=== PATIENT | male | born 1995 | race Caucasian/White ===

== ENCOUNTER → 2018-04-12 | Outpatient (CLI) | payer OTHER ==
--- NOTE | 2018-04-12 09:06 | CT ---
EXAMINATION TYPE: CT cervical spine wo con DATE OF EXAM: 04/12/2018 COMPARISON: NONE HISTORY: Fracture C7-T1 spinous process, cervicalgia, myalgia, and cervical spine ligament sprain all per order. Chronic neck pain for 6 to 8 years with history of fracture causing pain or numbness into right arm per patient after injury. CT DLP: 665 mGycm. Automated Exposure Control for Dose Reduction was Utilized. TECHNIQUE: CT scan of the cervical spine is obtained without contrast, axial images are obtained, sa gittal and coronal reformatted images are also reviewed. FINDINGS: Cervical spine is visualized in its entirety from C1 through upper thoracic levels, demonst rates satisfactory alignment without evidence of acute fracture or dislocation. Prevertebral soft ti ssue appears within normal limits. The C1-C2 articulation is within normal limits on the coronal abe ges. Vertebral body heights and disc space heights are fairly well-maintained. Posterior spurring C3-C4 le latoya is noted on sagittal images. Anterior spurring at mid cervical levels is also seen on sagittal im ages. Old fracture deformities involving spinous process at C7 through visualized T3 levels is identi fied with more prominent posterior distraction at the C7 and T1 levels noted. Axial images at C2-C3 level show tiny central disc protrusion mildly effacing anterior thecal sac on axial image 48, bilateral neural foramina are patent. Axial images at the C3-C4 level show similar small but calcified central disc protrusion effacing ant erior thecal sac on axial image 56, bilateral neural foramina are patent. Axial images at the C4-C5 level show broad-based right paracentral/foraminal disc protrusion with hoa e right-sided uncovertebral facet degenerative changes, there is some effacement of the anterolateral thecal sac and asymmetric moderate right-sided neural foraminal narrowing on axial image 63. Left-si ded neural foramen is patent. Axial images at the C5-C6 level shows central disc protrusion effacing anterior thecal sac on axial i mage 70, bilateral neural foramina are felt patent. Axial images at C6-C7 level show left paracentral disc protrusion on axial image 78, bilateral neural foramina are patent. Axial images at C7-T1 level are slightly suboptimal due to artifact related scanning through the shou lders. There are likely within normal limits. Visualized thyroid gland is within normal limits. Visualized lung apices are clear. IMPRESSION: There are old spinous process fractures from C7 through at least T3 level. 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
== END | disposition home or self-care (01) ==
LOC: RADCTMAIN 06:48
PROVIDERS: ATTEND Orthopaedic Surgery Orthopaedic Surgery of the Spine
DX: M47.812 Spondylosis without myelopathy or radiculopathy, cervical region (principal); Z87.81 Personal history of (healed) traumatic fracture
CPT/HCPCS: 72125

== ENCOUNTER 2018-04-15 02:26 | Emergency (ER) | payer OTHER ==
[2018-04-15] MEDS ORDERED: SODIUM CHLORIDE 0.9% 1,000 ML IV STA (02:57)
[2018-04-15] MEDS ORDERED: MECLIZINE 12.5 MG TAB PO STA (02:57)
[2018-04-15 03:24] LABS: Basophils % (A) 0 %; Eosinophils % (A) 1 %; HCT 46.4 % (39.0-53.0); HGB 16.2 gm/dL (13.0-17.5); Lymphocytes # (A) 4.3 k/uL (1.0-4.8); Lymphocytes % (A) 48 %; MCHC 34.9 g/dL (31.0-37.0); MCV 88.8 fL (80.0-100.0); Mean Platelet Volume 6.7; Monocytes # (A) 0.6 k/uL (0-1.0); Monocytes % (A) 7 %; Neutrophils # (A) 3.8 k/uL (1.3-7.7); Neutrophils % (A) 42 %; Platelet Count 292 k/uL (150-450); RBC 5.22 m/uL (4.30-5.90); RDW 12.6 % (11.5-15.5); WBC 8.9 k/uL (3.8-10.6)
[2018-04-15 03:29] LABS: Prothrombin Time 10.2 sec (9.0-12.0)
[2018-04-15 03:35] LABS: ALT 47 U/L (21-72); AST 34 U/L (17-59); Albumin 4.7 g/dL (3.5-5.0); Alkaline Phosphatase 113 U/L (38-126); Anion Gap 11 mmol/L; Blood Urea Nitrogen 14 mg/dL (9-20); Calcium 9.8 mg/dL (8.4-10.2); Carbon Dioxide 24 mmol/L (22-30); Chloride 106 mmol/L (98-107); Glucose 123 mg/dL (74-99); Potassium 4.1 mmol/L (3.5-5.1); Sodium 141 mmol/L (137-145); Total Bilirubin 0.3 mg/dL (0.2-1.3); Total Protein 7.7 g/dL (6.3-8.2)
--- NOTE | 2018-04-15 03:45 | CT ---
EXAMINATION TYPE: CT brain wo con DATE OF EXAM: 04/15/2018 COMPARISON: None HISTORY: dizzy CT DLP: 1108.40 mGycm. Automated Exposure Control for Dose Reduction was Utilized. TECHNIQUE: CT scan of the head is performed without contrast. FINDINGS: Ventricles of normal size. There is no mass effect nor midline shift. There is no sign of i ntracranial hemorrhage. The calvarium appears intact. IMPRESSION: Normal head CT scan..
[2018-04-15 04:05] VITALS: RESP 18
[2018-04-15 04:17] LABS: Appearance,Urine Clear (Clear); Bilirubin,Urine Negative (Negative); Blood,Urine Negative (Negative); Color,Urine Yellow; Glucose,Urine (UA) Negative (Negative); Ketones,Urine Negative (Negative); Leukocyte Esterase,Urine Negative (Negative); Nitrite,Urine Negative (Negative); PH, Urine 6.5 (5.0-8.0); Protein,Urine Trace (Negative); Specific Gravity,Urine 1.024 (1.001-1.035)
--- NOTE | 2018-04-15 04:24 | ED ---
General Adult HPI - General Chief complaint: Dizziness Stated complaint: DIZZINESS Time Seen by Provider: 04/15/18 02:40 Source: patient, RN notes reviewed Mode of arrival: ambulatory Limitations: no limitations - History of Present Illness Initial comments: 22-year-old male presents to the emergency department for a chief complaint of dizziness x a few months. Patient states the dizziness comes and goes and he does not necessarily notice a pattern. Patient states today the dizziness worsened. He states that he felt unsteady walking so decided to be seen. Patient denies any syncopal episodes. Patient denies any cardiac history. Patient denies falling or hitting injuring his head. Patient does admit to multiple cervical spine fractures that went undiagnosed for the past few years and recently found by orthopedics on CAT scan. Patient states he has chronic back pain because of this. Patient states he also noticed a ringing in his ear that happened today about 3 hours ago lasting for 30 seconds. Patient denies any ear pain. Patient denies any nausea or vomiting. Patient has no other complaints at this time including shortness of breath, chest pain, abdominal pain, nausea or vomiting, headache, or visual changes. - Related Data Previous Rx's Medication Instructions Recorded Meclizine [Antivert] 25 mg PO BID PRN #20 tab 04/15/18 Allergies Allergy/AdvReac Type Severity Reaction Status Date / Time No Known Allergies Allergy Verified 04/15/18 02:37 Review of Systems ROS Statement: Those systems with pertinent positive or pertinent negative responses have been documented in the HPI. ROS Other: All systems not noted in ROS Statement are negative. Past Medical History Past Medical History: No Reported History History of Any Multi-Drug Resistant Organisms: None Reported Additional Past Surgical History / Comment(s): c7-t1 fracture Past Psychological History: No Psychological Hx Reported Smoking Status: Never smoker Past Alcohol Use History: None Reported Past Drug Use History: None Reported General Exam Limitations: no limitations General appearance: alert Head exam: Present: atraumatic, normocephalic, normal inspection Eye exam: Present: normal appearance, PERRL, EOMI, nystagmus (fatigueable peripheral nystagmus bilat, no vertical nystagmus). Absent: scleral icterus, conjunctival injection, periorbital swelling, periorbital tenderness ENT exam: Present: normal exam, normal oropharynx, mucous membranes moist, TM's normal bilaterally, normal external ear exam Neck exam: Present: normal inspection, full ROM. Absent: tenderness, meningismus, lymphadenopathy Respiratory exam: Present: normal lung sounds bilaterally. Absent: respiratory distress, wheezes, rales, rhonchi, stridor Cardiovascular Exam: Present: regular rate, normal rhythm, normal heart sounds. Absent: systolic murmur, diastolic murmur, rubs, gallop, clicks Extremities exam: Present: full ROM (moves all extremities without difficulty) Neurological exam: Present: alert, oriented X3, CN II-XII intact, normal gait. Absent: motor sensory deficit Expanded Neurological exam: Absent: inattentive, memory loss-remote event, memory loss- recent event, ataxia, receptive aphasia, expressive aphasia, total aphasia, tremor Speech: Present: fluid speech Cranial nerves: EOM's Intact: Normal, Tongue Deviation: Normal Cerebellar function: Finger to Nose: Normal, Heel to Buchanan: Normal, Romberg: Normal Upper motor neuron: Pronator Drift: Normal Sensory exam: Upper Extremity Light Touch: Normal, Upper Extremity Pin Prick: Normal, Lower Extremity Light Touch: Normal, Lower Extremity Pin Prick: Normal Motor strength exam: RUE: 5, LUE: 5, RLE: 5, LLE: 5 Eye Response: (4) open spontaneously Motor Response: (6) obeys commands Verbal Response: (5) oriented Yousif Total: 15 Psychiatric exam: Present: normal affect, normal mood Skin exam: Present: warm, dry, intact, normal color. Absent: rash Course Vital Signs 04/15/18 04/15/18 04/15/18 02:33 03:17 04:04 Temperature 98.4 F Pulse Rate 95 85 75 Respiratory 18 17 18 Rate Blood Pressure 163/97 141/86 128/76 O2 Sat by Pulse 97 97 98 Oximetry Medical Decision Making - Medical Decision Making 22-year-old male presents to the emergency department for a chief complaint of dizziness times over 3 months. Patient states is intermittent and comes and goes multiple times at the day. Patient denies headache. On exam no focal neuro deficits. Negative Romberg, heel buchanan, and finger to nose test. Patient is walking without difficulty. He does not appear toxic. Patient has a fatigable lateral nystagmus, exam otherwise unremarkable. Denies any focal numbness tingling or weakness. Patient's urine drug screen did have benzos detected which he refused having taken. Brain CT shows ventricles of normal size without mass effect or midline shift. No sign of intracranial hemorrhage. Normal scan. Patient was given Antivert and feels much better. Patient is likely experiencing a benign positional paroxysmal vertigo. Patient will follow up with primary care in 1-2 days. He will return to the emergency department if he has any worsening symptoms. He will be given a perception for Antivert to take if he begins to feel dizzy. - Lab Data Result diagrams: 04/15/18 03:08 04/15/18 03:08 Lab Results 04/15/18 04/15/18 04/15/18 Range/Units 03:08 03:08 03:08 WBC 8.9 (3.8-10.6) k/uL RBC 5.22 (4.30-5.90) m/uL Hgb 16.2 (13.0-17.5) gm/dL Hct 46.4 (39.0-53.0) % MCV 88.8 (80.0-100.0) fL MCH 31.0 (25.0-35.0) pg MCHC 34.9 (31.0-37.0) g/dL RDW 12.6 (11.5-15.5) % Plt Count 292 (150-450) k/uL Neutrophils % 42 % Lymphocytes % 48 % Monocytes % 7 % Eosinophils % 1 % Basophils % 0 % Neutrophils # 3.8 (1.3-7.7) k/uL Lymphocytes # 4.3 (1.0-4.8) k/uL Monocytes # 0.6 (0-1.0) k/uL Eosinophils # 0.0 (0-0.7) k/uL Basophils # 0.0 (0-0.2) k/uL PT 10.2 (9.0-12.0) sec INR 1.0 (<1.2) Sodium 141 (137-145) mmol/L Potassium 4.1 (3.5-5.1) mmol/L Chloride 106 (98-107) mmol/L Carbon Dioxide 24 (22-30) mmol/L Anion Gap 11 mmol/L BUN 14 (9-20) mg/dL Creatinine 1.00 (0.66-1.25) mg/dL Est GFR (CKD-EPI)AfAm >90 (>60 ml/min/1.73 sqM) Est GFR (CKD-EPI)NonAf >90 (>60 ml/min/1.73 sqM) Glucose 123 H (74-99) mg/dL Calcium 9.8 (8.4-10.2) mg/dL Total Bilirubin 0.3 (0.2-1.3) mg/dL AST 34 (17-59) U/L ALT 47 (21-72) U/L Alkaline Phosphatase 113 (38-126) U/L Troponin I (0.000-0.034) ng/mL Total Protein 7.7 (6.3-8.2) g/dL Albumin 4.7 (3.5-5.0) g/dL Urine Color Urine Appearance (Clear) Urine pH (5.0-8.0) Ur Specific [place] (1.001-1.035) Urine Protein (Negative) Urine Glucose (UA) (Negative) Urine Ketones (Negative) Urine Blood (Negative) Urine Nitrite (Negative) Urine Bilirubin (Negative) Urine Urobilinogen (<2.0) mg/dL Ur Leukocyte Esterase (Negative) Urine Opiates Screen (NotDetected) Ur Oxycodone Screen (NotDetected) Urine Methadone Screen (NotDetected) Ur Propoxyphene Screen (NotDetected) Ur Barbiturates Screen (NotDetected) U Tricyclic Antidepress (NotDetected) Ur Phencyclidine Scrn (NotDetected) Ur Amphetamines Screen (NotDetected) U Methamphetamines Scrn (NotDetected) U Benzodiazepines Scrn (NotDetected) Urine Cocaine Screen (NotDetected) U Marijuana (THC) Screen (NotDetected) 04/15/18 04/15/18 Range/Units 03:08 03:50 WBC (3.8-10.6) k/uL RBC (4.30-5.90) m/uL Hgb (13.0-17.5) gm/dL Hct (39.0-53.0) % MCV (80.0-100.0) fL MCH (25.0-35.0) pg MCHC (31.0-37.0) g/dL RDW (11.5-15.5) % Plt Count (150-450) k/uL Neutrophils % % Lymphocytes % % Monocytes % % Eosinophils % % Basophils % % Neutrophils # (1.3-7.7) k/uL Lymphocytes # (1.0-4.8) k/uL Monocytes # (0-1.0) k/uL Eosinophils # (0-0.7) k/uL Basophils # (0-0.2) k/uL PT (9.0-12.0) sec INR (<1.2) Sodium (137-145) mmol/L Potassium (3.5-5.1) mmol/L Chloride (98-107) mmol/L Carbon Dioxide (22-30) mmol/L Anion Gap mmol/L BUN (9-20) mg/dL Creatinine (0.66-1.25) mg/dL Est GFR (CKD-EPI)AfAm (>60 ml/min/1.73 sqM) Est GFR (CKD-EPI)NonAf (>60 ml/min/1.73 sqM) Glucose (74-99) mg/dL Calcium (8.4-10.2) mg/dL Total Bilirubin (0.2-1.3) mg/dL AST (17-59) U/L ALT (21-72) U/L Alkaline Phosphatase (38-126) U/L Troponin I <0.012 (0.000-0.034) ng/mL Total Protein (6.3-8.2) g/dL Albumin (3.5-5.0) g/dL Urine Color Yellow Urine Appearance Clear (Clear) Urine pH 6.5 (5.0-8.0) Ur Specific [place] 1.024 (1.001-1.035) Urine Protein Trace H (Negative) Urine Glucose (UA) Negative (Negative) Urine Ketones Negative (Negative) Urine Blood Negative (Negative) Urine Nitrite Negative (Negative) Urine Bilirubin Negative (Negative) Urine Urobilinogen 3.0 (<2.0) mg/dL Ur Leukocyte Esterase Negative (Negative) Urine Opiates Screen Not Detected (NotDetected) Ur Oxycodone Screen Not Detected (NotDetected) Urine Methadone Screen Not Detected (NotDetected) Ur Propoxyphene Screen Not Detected (NotDetected) Ur Barbiturates Screen Not Detected (NotDetected) U Tricyclic Antidepress Not Detected (NotDetected) Ur Phencyclidine Scrn Not Detected (NotDetected) Ur Amphetamines Screen Not Detected (NotDetected) U Methamphetamines Scrn Not Detected (NotDetected) U Benzodiazepines Scrn Detected H (NotDetected) Urine Cocaine Screen Not Detected (NotDetected) U Marijuana (THC) Screen Not Detected (NotDetected) Disposition Clinical Impression: Dizziness, Vertigo Disposition: HOME SELF-CARE Condition: Good Instructions: Dizziness (ED) Additional Instructions: Please take Antivert as needed. Please follow-up with primary care in 1-2 days. Please return to the emergency department if you have any worsening symptoms. Prescriptions: Meclizine [Antivert] 25 mg PO BID PRN #20 tab PRN Reason: vertigo Is patient prescribed a controlled substance at d/c from ED?: No Referrals: Robert Lawrence MD [STAFF PHYSICIAN] - 1-2 days Time of Disposition: 04:56
[2018-04-15 04:29] LABS: Amphetamine Screen,Urine Not Detected (NotDetected); Barbiturate Screen,Urine Not Detected (NotDetected); Benzodiazepines Screen,Urine Detected (NotDetected); Cocaine Screen,Urine Not Detected (NotDetected); Methadone Screen, Urine Not Detected (NotDetected); Opiate Screen,Urine Not Detected (NotDetected); Oxycodone Screen, Urine Not Detected (NotDetected); Phencyclidine Screen,Urine Not Detected (NotDetected); Tricyclic Antidepressant,Urine Not Detected (NotDetected); Urn Cannabinoid Scrn Not Detected (NotDetected)
[2018-04-15 05:14] VITALS: BP 127/79; PULSE 68; TEMP 98
== END 2018-04-15 05:14 | disposition home or self-care (01) ==
LOC: EC 02:26
DX: R42 Dizziness and giddiness (principal); R40.2142 Coma scale, eyes open, spontaneous, at arrival to emergency department; R40.2252 Coma scale, best verbal response, oriented, at arrival to emergency department; R40.2362 Coma scale, best motor response, obeys commands, at arrival to emergency department; H55.09 Other forms of nystagmus; M54.9 Dorsalgia, unspecified; G89.29 Other chronic pain; Z53.29 Procedure and treatment not carried out because of patient's decision for other reasons
CPT/HCPCS: 36415; 70450; 80053; 80306; 81003; 84484; 85025; 85610; 93005; 96360; 99284

== ENCOUNTER → 2018-04-20 | Outpatient (CLI) | payer OTHER ==
--- NOTE | 2018-04-22 12:19 | CT ---
EXAMINATION TYPE: CT thoracic spine wo con DATE OF EXAM: 04/20/2018 COMPARISON: None HISTORY: 22-year-old male neck and back pain, thoracic spine pain TECHNIQUE: Contiguous axial scanning of the thoracic spine without IV contrast. Coronal and sagittal reconstructions performed. CT DLP: 1869 mGycm Automated exposure control for dose reduction was used. 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 Vertebral body heights are preserved and alignment is maintained. No acute fracture identified in the thoracic spine. There is anterior endplate spondylosis with associated mild degenerative disc disease at T2-T3. There appears to be narrowing along the right T1-T4 neuroforamen. Additional narrowing at the left T2 -T3 neural foramen. No prevertebral or paravertebral soft tissue abnormality seen. IMPRESSION: 1. 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 CORRELATE TO I F THESE BONY FRAGMENTS ARE SYMPTOMATIC. 2. MILD SPONDYLOTIC CHANGE UPPER THORACIC SPINE PARTICULARLY AT T2-T3. IF THERE IS CONCERN FOR UNDERL TAM DISC HERNIATION, MRI COULD FURTHER EVALUATE. 3. BONY NEUROFORAMINAL NARROWING ALONG THE RIGHT T1 THROUGH T4 NEUROFORAMEN AND ON THE LEFT AT T2-T3.
== END | disposition home or self-care (01) ==
LOC: RADCTMAIN 09:33
PROVIDERS: ATTEND Orthopaedic Surgery Orthopaedic Surgery of the Spine
DX: S22.019 Unspecified fracture of first thoracic vertebra (principal); S22.029 Unspecified fracture of second thoracic vertebra; S22.03 Fracture of third thoracic vertebra; M99.72 Connective tissue and disc stenosis of intervertebral foramina of thoracic region; M47.814 Spondylosis without myelopathy or radiculopathy, thoracic region
CPT/HCPCS: 72128